=== PATIENT | male | born 1955 | race Caucasian/White ===

== ENCOUNTER 2017-06-08 00:51 | Inpatient (IN) | payer OTHER ==
[2017-06-08] VITALS (13 sets, daily range): BP systolic 121–144; BP diastolic 63–71; PULSE 55–63; RESP 18–20; Ht 167.6 cm; Wt 97.7 kg
[~2017-06-08] VITALS: Ht 167.6 cm; Wt 97.7 kg
[2017-06-08] MEDS ORDERED: MULT PO (02:49)
[2017-06-08] MEDS ORDERED: OMEP20CA16 PO (02:49)
[2017-06-08] MEDS ORDERED: PROP20TA4 PO (02:49)
[2017-06-08] MEDS ORDERED: ACETAMINOPHEN 325 MG TAB PO PRN (05:30)
[2017-06-08] MEDS ORDERED: PANTOPRAZOLE 40 MG INJ IV SCH (06:00)
[2017-06-08] MEDS: FOLIC ACID 1 MG TAB PO SCH (08:52)
[2017-06-08] MEDS: THIAMINE 100 MG TAB PO SCH (08:52)
[2017-06-08] MEDS: MULTIVITAMINS THERAPEUTIC TAB PO SCH (08:52)
[2017-06-08] MEDS ORDERED: PROPRANOLOL 20 MG TAB PO SCH (09:00)
[2017-06-08 10:48] LABS: BASOPHIL # 0.1 10^3/ul (0.0-0.1); BASOPHILS % 0.8 % (0.0-2.0); EOSINOPHILS # 0.2 10^3/ul (0.0-0.5); EOSINOPHILS % 2.3 % (0.0-7.0); HEMATOCRIT 34.4 % (42.0-52.0); HEMOGLOBIN 11.9 g/dl (14.0-18.0); LYMPHOCYTES # 2.3 10^3/ul (0.8-2.9); LYMPHOCYTES % 35.3 % (15.0-51.0); MEAN CORPUSCULAR HEMOGLOBIN 35.4 pg (29.0-33.0); MEAN CORPUSCULAR HGB CONC 34.6 g/dl (32.0-37.0); MEAN CORPUSCULAR VOLUME 102.4 fl (82.0-101.0); MEAN PLATELET VOLUME 11.9 fl (7.4-10.4); MONOCYTES % 14.6 % (0.0-11.0); NEUTROPHIL # 3.1 10^3/ul (1.6-7.5); NEUTROPHILS % 46.7 % (39.0-77.0); PLATELET COUNT 111 10^3/UL (140-415); RED BLOOD COUNT 3.36 10^6/ul (4.70-6.10); RED CELL DISTRIBUTION WIDTH 12.8 % (11.5-14.5); WHITE BLOOD COUNT 6.6 10^3/ul (4.8-10.8)
[2017-06-08 10:50] LABS: ALBUMIN 2.6 g/dl (3.3-4.9); ALBUMIN/GLOBULIN RATIO 0.54; BILIRUBIN,INDIRECT 1.9 mg/dl (0-1.1); BILIRUBIN,TOTAL 1.9 mg/dl (0.2-1.3); CALCIUM 8.4 mg/dl (8.4-10.2); CREATININE 0.78 mg/dl (0.61-1.24); POTASSIUM 4.2 mmol/L (3.5-5.1); TOTAL PROTEIN 7.4 g/dl (6.1-8.1)
--- NOTE | 2017-06-08 16:02 | HP ---
Date/Time of Note Date/Time of Note DATE: 06/08/17 TIME: 15:48 Assessment/Plan VTE Prophylaxis VTE Prophylaxis Intervention: ambulation Lines/Catheters IV Catheter Type (from [facility]): Saline Lock Urinary Cath still in place: No (d/c 06/08) Assessment/Plan Chief Complaint/Hosp Course 1. Liver cirrhosis 2. Hypertension 3. Bradycardia 4. Gynecomasty 5.Spider angioma. 6. Anemia with thrombocytopenia Problems: Assessment/Plan 1.Hold propranolol 2. Ammonia level tomorrow HPI/ROS Admit Date/Time Admit Date/Time Jun 08, 2017 at 00:51 Hx of Present Illness pt had ALC per daughter that was unusual and they went to [facility], then per insurance pt was transferred to [facility]. Pt has history ETOH cirrhosis, hypertension, and anemia ROS Subjective hx not possible: other (confused) Constitutional: chills, fatigue, nausea, No diaphoresis, No disoriented, No febrile, No improved, No no complaints, No other, No poor po, No weight change ENT: bleeding, pain, No congestion, No discharge, No dysphagia, No no complaints, No other, No sore throat Respiratory: cough, No no complaints, No other, No pain, No pleuritic pain, No shortness of breath, No sputum, No wheezing Gastrointestinal: constipation, pain, No blood, No decreased appetite, No diarrhea, No flatus, No nausea, No no complaints, No other, No passing stool, No vomiting Genitourinary: dysuria, No bleeding, No discharge, No flank pain, No hematuria, No no complaints, No other Musculoskeletal: back pain, No bone/joint pain, No neck pain, No no complaints, No other, No restricted range of motion, No swelling Lymphatic: adenopathy, No lymphadema, No no complaints, No other, No tender nodes Psychological: anxiety, No confusion, No depression, No nl mood/affect, No no complaints, No other, No suicidal PMH/Family/Social Past Medical History Medical History: hypertension, other (liver cirrhosis) Past Surgical History Past Surgical Hx: no surgical history Family History Significant Family History: diabetes, hypertension Social History Alcohol Use: other (former alcohol abuse) Smoking Status: Never smoker Drug Use: none Exam/Review of Systems Vital Signs Vitals Vital Signs Date Time Temp Pulse Resp B/P Pulse Ox O2 Delivery O2 Flow Rate FiO2 06/08/17 12:06 55 06/08/17 11:19 98.9 18 137/63 99 06/08/17 01:00 Bag Valve Mask Exam Exam gynecomasty and spider angioma Constitutional: alert (name only) Head: normocephalic Eyes: EOMI, nl conjunctiva Neck: supple Respiratory: clear to auscultation Cardiovascular: regular rate and rhythm Gastrointestinal: other, soft Genitourinary - Male: nl scrotum Labs Result Diagram: 06/08/1771906/08/17719 Medications Medications Current Medications Acetaminophen (Tylenol Tab) 650 mg Q6H PRN PO PAIN AND OR ELEVATED TEMP; Start 06/08/17 at 05:30 Folic Acid (Folic Acid) 1 mg DAILY PO Last administered on 06/08/17 08:52; Admin Dose 1 MG; Start 06/08/17 at 09:00 Thiamine HCl (Vitamin B1) 100 mg DAILY PO Last administered on 06/08/17 08:52 ; Admin Dose 100 MG; Start 06/08/17 at 09:00 Propranolol HCl (Inderal) 20 mg BID PO Last administered on 06/08/17 08:53; Admin Dose 20 MG; Start 06/08/17 at 09:00 Multivitamins Therapeutic (Theragran) 1 tab DAILY PO Last administered on 06/08 08:52; Admin Dose 1 TAB; Start 06/08/17 at 09:00 Pantoprazole (Protonix Tab) 40 mg DAILY@06 PO ; Start 06/09/17 at 06:00 DULCE IRAHETA Jun 08, 2017 16:00
[2017-06-08] MEDS: PROPRANOLOL 10 MG TAB PO SCH (20:44)
[2017-06-09] VITALS (12 sets, daily range): BP systolic 118–129; BP diastolic 63–75; PULSE 55–58; RESP 18–19
[2017-06-09] MEDS: PANTOPRAZOLE (EC) 40 MG TAB PO SCH (05:51)
[2017-06-09] MEDS: MULTIVITAMINS THERAPEUTIC TAB PO SCH (08:31)
[2017-06-09] MEDS: FOLIC ACID 1 MG TAB PO SCH (08:31)
[2017-06-09] MEDS: PROPRANOLOL 10 MG TAB PO SCH ×2 (08:33→21:58)
[2017-06-09 09:12] LABS: BASOPHIL # 0.1 10^3/ul (0.0-0.1); EOSINOPHILS # 0.3 10^3/ul (0.0-0.5); EOSINOPHILS % 3.8 % (0.0-7.0); HEMATOCRIT 33.4 % (42.0-52.0); LYMPHOCYTES # 2.6 10^3/ul (0.8-2.9); LYMPHOCYTES % 35.6 % (15.0-51.0); MEAN CORPUSCULAR HEMOGLOBIN 36.6 pg (29.0-33.0); MEAN CORPUSCULAR HGB CONC 35.9 g/dl (32.0-37.0); MEAN CORPUSCULAR VOLUME 101.8 fl (82.0-101.0); MEAN PLATELET VOLUME 11.1 fl (7.4-10.4); MONOCYTE # 1.1 10^3/ul (0.3-0.9); MONOCYTES % 15.6 % (0.0-11.0); NEUTROPHIL # 3.2 10^3/ul (1.6-7.5); NEUTROPHILS % 43.6 % (39.0-77.0); POSITIVE DIFF @See below; RED BLOOD COUNT 3.28 10^6/ul (4.70-6.10); RED CELL DISTRIBUTION WIDTH 12.4 % (11.5-14.5); WHITE BLOOD COUNT 7.3 10^3/ul (4.8-10.8)
[2017-06-09 09:15] LABS: PLATELET COUNT 126 10^3/UL (140-415)
[2017-06-09 09:31] LABS: CALCIUM 8.2 mg/dl (8.4-10.2); CREATININE 0.82 mg/dl (0.61-1.24); POTASSIUM 4.7 mmol/L (3.5-5.1)
[2017-06-09] MEDS: THIAMINE 100 MG TAB PO SCH (09:38)
--- NOTE | 2017-06-09 12:52 | PN ---
Date/Time of Note Date/Time of Note DATE: 06/09/17 TIME: 12:51 Assessment/Plan VTE Prophylaxis VTE Prophylaxis Intervention: ambulation Lines/Catheters IV Catheter Type (from [facility]): Saline Lock Urinary Cath still in place: No Assessment/Plan Chief Complaint/Hosp Course 1. Liver cirrhosis with ammonia level 128 2. Hypertension 3. Bradycardia 4. Gynecomasty 5.Spider angioma. 6. Anemia with thrombocytopenia Problems: Assessment/Plan 1. start lactulose q 8 hours Subjective 24 Hr Interval Summary Subjective hx not possible: pt non-verbal Constitutional: improved Genitourinary: no complaints Exam/Review of Systems Vital Signs Vitals Vital Signs Date Time Temp Pulse Resp B/P Pulse Ox O2 Delivery O2 Flow Rate FiO2 06/09/17 12:41 98.1 59 18 121/67 99 06/08/17 01:00 Bag Valve Mask Intake and Output 06/08/17 06/08/17 06/09/17 15:00 23:00 07:00 Intake Total 500 ml 280 ml Output Total 1000 ml 500 ml Balance -500 ml -220 ml Exam Constitutional: alert, oriented Respiratory: clear to auscultation Cardiovascular: regular rate and rhythm Gastrointestinal: soft Genitourinary - Male: nl scrotum Extremities: normal pulses Results Result Diagram: 06/09/17 0825 06/09/17 0825 Results 24 hrs Laboratory Tests Test 06/09/17 08:25 White Blood Count 7.3 Red Blood Count 3.28 L Hemoglobin 12.0 L Hematocrit 33.4 L Mean Corpuscular Volume 101.8 H Mean Corpuscular Hemoglobin 36.6 H Mean Corpuscular Hemoglobin Concent 35.9 Red Cell Distribution Width 12.4 Platelet Count 126 L Mean Platelet Volume 11.1 H Neutrophils % 43.6 Lymphocytes % 35.6 Monocytes % 15.6 H Eosinophils % 3.8 Basophils % 1.0 Nucleated Red Blood Cells % 0.0 Neutrophils # 3.2 Lymphocytes # 2.6 Monocytes # 1.1 H Eosinophils # 0.3 Basophils # 0.1 Nucleated Red Blood Cells # 0.0 Sodium Level 133 L Potassium Level 4.7 Chloride Level 104 Carbon Dioxide Level 22 Anion Gap 12 Blood Urea Nitrogen 12 Creatinine 0.82 Glucose Level 91 Calcium Level 8.2 L Ammonia 117 H Medications Medications Current Medications Acetaminophen (Tylenol Tab) 650 mg Q6H PRN PO PAIN AND OR ELEVATED TEMP; Start 06/08/17 at 05:30 Folic Acid (Folic Acid) 1 mg DAILY PO Last administered on 06/09/17 08:31; Admin Dose 1 MG; Start 06/08/17 at 09:00 Thiamine HCl (Vitamin B1) 100 mg DAILY PO Last administered on 06/09/17 09:38 ; Admin Dose 100 MG; Start 06/08/17 at 09:00 Multivitamins Therapeutic (Theragran) 1 tab DAILY PO Last administered on 06/09 08:31; Admin Dose 1 TAB; Start 06/08/17 at 09:00 Pantoprazole (Protonix Tab) 40 mg DAILY@06 PO Last administered on 06/09/17 05:51; Admin Dose 40 MG; Start 06/09/17 at 06:00 Propranolol HCl (Inderal) 10 mg BID PO Last administered on 06/09/17 08:33; Admin Dose 10 MG; Start 06/08/17 at 21:00 DULCE IRAHETA Jun 09, 2017 12:52
[2017-06-09] MEDS: LACTULOSE 30ML CUP PO SCH ×2 (13:26→21:58)
[2017-06-10] VITALS (11 sets, daily range): BP systolic 116–144; BP diastolic 60–71; PULSE 58–88; RESP 18–20
[2017-06-10] MEDS: PANTOPRAZOLE (EC) 40 MG TAB PO SCH (06:14)
[2017-06-10] MEDS: LACTULOSE 30ML CUP PO SCH ×3 (06:14→21:28)
[2017-06-10] MEDS: PROPRANOLOL 10 MG TAB PO SCH ×2 (09:00→21:28)
[2017-06-10] MEDS: THIAMINE 100 MG TAB PO SCH (09:08)
[2017-06-10] MEDS: MULTIVITAMINS THERAPEUTIC TAB PO SCH (09:08)
[2017-06-10] MEDS: FOLIC ACID 1 MG TAB PO SCH (09:08)
--- NOTE | 2017-06-10 15:34 | PN ---
Date/Time of Note Date/Time of Note DATE: 06/10/17 TIME: 15:30 Assessment/Plan VTE Prophylaxis VTE Prophylaxis Intervention: contraindicated Lines/Catheters IV C[facility] Type (from [facility] Saline Lock Urinary Cath still in place: No Assessment/Plan Chief Complaint/Hosp Course 61 y/o with # Hepatic encephalopathy with elevated ammonia # Hyponatremia #.Etoh Liver cirrhosis with MELD 26 #. Hypertension # Bradycardia #. Gynecomastia #.Spider angioma. # Anemia with thrombocytopenia # hx severe portal gastropathy and EV Recs - c.w Lactulose - c/w Propanolol - c/w Thiamine/folic acid - Ambulate - Transfer med surg Problems: Subjective 24 Hr Interval Summary Free Text/Dictation Pt much more awake, alert Exam/Review of Systems Vital Signs Vitals Vital Signs Date Time Temp Pulse Resp B/P Pulse Ox O2 Delivery O2 Flow Rate FiO2 06/10/17 12:00 58 06/10/17 11:34 98.1 18 132/71 99 06/08/17 01:00 Bag Valve Mask Intake and Output 06/09/17 06/09/17 06/10/17 15:00 23:00 07:00 Intake Total 800 ml 300 ml Output Total 1000 ml Balance -200 ml 300 ml Exam Constitutional: alert, oriented Respiratory: clear to auscultation Cardiovascular: regular rate and rhythm Gastrointestinal: soft Genitourinary - Male: nl scrotum Extremities: normal pulses Results Result Diagram: 06/09/1782406/09/17 0825 Results 24 hrs Laboratory Tests Test 06/10/17 06:50 Ammonia 46 #H Medications Medications Current Medications Acetaminophen (Tylenol Tab) 650 mg Q6H PRN PO PAIN AND OR ELEVATED TEMP; Start 06/08/17 at 05:30 Folic Acid (Folic Acid) 1 mg DAILY PO Last administered on 06/10/17 09:08; Admin Dose 1 MG; Start 06/08/17 at 09:00 Thiamine HCl (Vitamin B1) 100 mg DAILY PO Last administered on 06/10/17 09:08 ; Admin Dose 100 MG; Start 06/08/17 at 09:00 Multivitamins Therapeutic (Theragran) 1 tab DAILY PO Last administered on 06/10 09:08; Admin Dose 1 TAB; Start 06/08/17 at 09:00 Pantoprazole (Protonix Tab) 40 mg DAILY@06 PO Last administered on 06/10/17 06:14; Admin Dose 40 MG; Start 06/09/17 at 06:00 Propranolol HCl (Inderal) 10 mg BID PO Last administered on 06/09/17 21:58; Admin Dose 10 MG; Start 06/08/17 at 21:00 Lactulose (Enulose) 20 gm Q8 PO Last administered on 06/10/17 14:06; Admin Dose 20 GM; Start 06/09/17 at 14:00 ROSHAN EATON MD Jun 10, 2017 15:34
[2017-06-11 02:00] VITALS: BP 121/60; RESP 18
[2017-06-11] MEDS: LACTULOSE 30ML CUP PO SCH (05:53)
[2017-06-11] MEDS: PANTOPRAZOLE (EC) 40 MG TAB PO SCH (05:53)
[2017-06-11 06:22] LABS: BASOPHIL # 0.1 10^3/ul (0.0-0.1); EOSINOPHILS # 0.3 10^3/ul (0.0-0.5); EOSINOPHILS % 4.8 % (0.0-7.0); HEMATOCRIT 33.5 % (42.0-52.0); HEMOGLOBIN 12.2 g/dl (14.0-18.0); LYMPHOCYTES # 2.5 10^3/ul (0.8-2.9); LYMPHOCYTES % 40.2 % (15.0-51.0); MEAN CORPUSCULAR HEMOGLOBIN 37.2 pg (29.0-33.0); MEAN CORPUSCULAR HGB CONC 36.4 g/dl (32.0-37.0); MEAN CORPUSCULAR VOLUME 102.1 fl (82.0-101.0); MEAN PLATELET VOLUME 10.7 fl (7.4-10.4); MONOCYTES % 16.2 % (0.0-11.0); NEUTROPHIL # 2.3 10^3/ul (1.6-7.5); NEUTROPHILS % 37.6 % (39.0-77.0); PLATELET COUNT 106 10^3/UL (140-415); RED BLOOD COUNT 3.28 10^6/ul (4.70-6.10); RED CELL DISTRIBUTION WIDTH 12.5 % (11.5-14.5); WHITE BLOOD COUNT 6.1 10^3/ul (4.8-10.8)
[2017-06-11 06:53] LABS: ALBUMIN 2.7 g/dl (3.3-4.9); ALBUMIN/GLOBULIN RATIO 0.6; BILIRUBIN,INDIRECT 0.9 mg/dl (0-1.1); BILIRUBIN,TOTAL 0.9 mg/dl (0.2-1.3); CREATININE 0.9 mg/dl (0.61-1.24); POTASSIUM 4.4 mmol/L (3.5-5.1); TOTAL PROTEIN 7.2 g/dl (6.1-8.1)
[2017-06-11 07:42] VITALS: BP 117/63; RESP 20
[2017-06-11 08:19] LABS: MAGNESIUM 1.9 mg/dl (1.7-2.5); PHOSPHORUS 4.1 mg/dl (2.5-4.9)
--- NOTE | 2017-06-11 09:53 | PDOCDIS ---
Discharge Instructions DIAGNOSIS Discharge Diagnosis Hepatic encephalopathy Etoh cirrhosis CONDITION Patient Condition: Fair HOME CARE INSTRUCTIONS: Diet Instructions: Modified FatSpecial Diet: regular ACTIVITY: Activity Restrictions: Slowly Increase Activity FOLLOW UP/APPOINTMENTS Follow-up Plan f/u PCP in 2 weeks Stop ETOH Titrate lactulose to 2-3 bm/day ROSHAN EATON MD Jun 11, 2017 09:53
[2017-06-11] MEDS ORDERED: LACT20SO2 PO (09:55)
[2017-06-11] MEDS: FOLIC ACID 1 MG TAB PO SCH (10:01)
[2017-06-11] MEDS: THIAMINE 100 MG TAB PO SCH (10:01)
[2017-06-11] MEDS: PROPRANOLOL 10 MG TAB PO SCH (10:01)
[2017-06-11] MEDS: MULTIVITAMINS THERAPEUTIC TAB PO SCH (10:01)
--- NOTE | 2017-06-11 10:32 | DS ---
DATE OF ADMISSION: 06/08/2017 DATE OF DISCHARGE: 06/11/2017 HISTORY OF PRESENTING ILLNESS: This is a 61-year-old male with a past medical history of ETOH, cirr hosis, hypertension and anemia, went to the [facility] after patient was found altered. On arrival to ED at [facility], the patient was found to be hyponatremic with sodium of 120s and was also having hepatic encephalopathy, was started on lactulose around the clock. Patient was transferred on 06/08/2017 to [facility] due to insurance reasons. Here, patient's ammonia levels were checked that was 117, which he was continued on lactulose. The patient was much awake, alert, oriented. The next day, ammonia levels came down to 46. Patient LFTs were within normal trejo its except AST 60, alkaline phosphatase 227, total bilirubin 0.9. White count 6.1, hemoglobin 12.2, platelet count 106. The patient was feeling much better, ambulating, tolerating diet. He is stabl e to be discharged home on lactulose. FINAL DISCHARGE DIAGNOSES: 1. Hepatic encephalopathy with elevated ammonia, resolved status post treatment with lactulose. 2. Hyponatremia, now currently 134. 3. 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 4. Hypertension. 5. Bradycardia, propranolol on hold. 6. Gynecomastia. 7. . 8. Anemia with thrombocytopenia, likely secondary to cirrhosis. 9. History of portal gastropathy with veins. PLAN: The patient was instructed to follow up with PCP in about 2 weeks and was instructed to stop drinking alcohol. Patient was told to titrate lactulose to 2 or 3 bowel movements a day. Dictated By: ROSHAN GREWAL/JC Conf#: [id number] DID#: [id number]
== END 2017-06-11 14:45 | disposition home or self-care (01) | DRG 442 ==
LOC: MS4 00:51 → MS2 06-10 18:45
PROVIDERS: ADMIT Internal Medicine Nephrology; ATTEND Internal Medicine Nephrology
DX: K72.90 Hepatic failure, unspecified without coma (principal); E87.1 Hypo-osmolality and hyponatremia; D69.59 Other secondary thrombocytopenia; E72.20 Disorder of urea cycle metabolism, unspecified; K76.6 Portal hypertension; K70.30 Alcoholic cirrhosis of liver without ascites; I10 Essential (primary) hypertension; F10.20 Alcohol dependence, uncomplicated; R00.1 Bradycardia, unspecified; N62 Hypertrophy of breast; I78.1 Nevus, non-neoplastic; K31.89 Other diseases of stomach and duodenum; D63.8 Anemia in other chronic diseases classified elsewhere
CPT/HCPCS: 80048; 80053; 82140; 83735; 84100; 85025; 87081; 92610; C9113